=== PATIENT | female | born 1990 | race Caucasian/White ===

== ENCOUNTER 2016-08-06 01:54 | Emergency (ER) | payer BC, OTHER ==
[~2016-08-06] VITALS: Ht 162.6 cm; Wt 64.5 kg
[2016-08-06 01:55] VITALS: TEMP 36.3; O2SAT 100; Ht 162.6 cm; Wt 64.5 kg
--- NOTE | 2016-08-06 02:11 | EMERGENCY ROOM VISIT NOTE ---
History Report prepared by Kin: Nieves Morrell Under the Supervision of: Dr. Rosa Isela Rodriguez D.O. First contact with patient: 01:56 Chief Complaint: ALCOHOL OVERDOSE Stated Complaint: ALCOHOL OVERDOSE History of Present Illness The patient is a 25 year old female who presents to the Emergency Room with complaints of alcohol overdose occurring [employer]. According to nursing staff the patient was drinking at a friends house and after returning home was found by fiance in the shower with all her clothes on and vomit all over herself. The patient states that she did not injury herself tonight. She denies the possibility of currency being and states her last menstrual period was 2 weeks ago. Source of History: patient, nursing staff History Limited By: intoxication Onset: [employer] Position: other (global) Note: Patient denies any injury. Review of Systems See HPI for pertinent positives & negatives. A total of 10 systems reviewed and were otherwise negative. Past Medical & Surgical Medical Problems: (1) No significant medical problems Family History No pertinent family history stated. Social History Alcohol Use: occasionally Marital Status: in relationship Housing Status: lives with significant other Occupation Status: employed Current/Historical Medications No Active Prescriptions or Reported Meds Allergies Coded Allergies: No Known Allergies (Unverified , 08/06/16) Physical Exam Vital Signs Date Time Temp Pulse Resp B/P Pulse Ox O2 Delivery O2 Flow Rate FiO2 08/06/16 04:36 77 20 111/81 99 Room Air 08/06/16 02:02 73 08/06/16 01:55 100 Room Air 08/06/16 01:55 36.3 70 20 127/66 100 Room Air Physical Exam General: Smells of alcohol, has vomit in hair and is angry. HEENT: Head - normocephalic and atraumatic Pupils are 4 mm and reactive to light. Extraocular eye muscles are intact, and sclera are anicteric. Nose - moist nasal mucosa without discharge. Mouth - moist buccal mucosa. Oropharynx is nonerythematous and there is no tonsillar exudate or edema noted. Neck: Supple; no JVD, nuchal rigidity, cervical lymphadenopathy. Heart: Regular rate and rhythm. There is a normal S1 and S2 with no murmurs, clicks, or gallops appreciated. Lungs: Clear to auscultation bilaterally with no wheezes, rales, or rhonchi. Abdomen: Soft, completely nontender, nondistended, with good bowel sounds. There are no palpable pulsatile masses or hepatosplenomegaly. There is no guarding, rigidity, or rebound noted. Extremities: No evidence of cyanosis, clubbing, or edema. There are easily palpable peripheral pulses. Skin: warm and dry with good turgor and no rashes. Medical Decision & Procedures Laboratory Results 08/06/16 02:20 Test 08/06/16 02:20 Anion Gap 8.0 mmol/L (3-11) Est Creatinine Clear Calc Drug Dose 85.9 ml/min Estimated GFR () 108.8 Estimated GFR (Non- 93.9 BUN/Creatinine Ratio 14.4 (10-20) Calcium Level 8.3 mg/dl (8.5-10.1) Ethyl Alcohol mg/dL 307.0 mg/dl (0-3) Laboratory results per my review. ED Course 0203: Past medical records reviewed. The patient was evaluated in room B4. A complete history and physical exam was performed. The patient was placed in the prone position to avoid aspiration. She was observed on the cardiac rehabilitation program director and pulse oximeter. Labs were drawn as above. 0350: I reevaluated the patient and she was hemodynamically stable and discussed her lab results with her. 0450: I reevaluated the patient and he was hemodynamically stable and sleeping 0542: I reevaluated the patient and she was asleep and unable to be aroused and hemodynamically stable. 0630: The patient is signed out to Dr. Santo at change of shift. Medical Decision The patient is a 25 year old female who presents to the ED with alcohol overdose. Differential diagnosis includes alcohol overdose, drug intoxication, head injury, hypothermia, and hyperglycemia. Labs: EtOH 307 Normal renal function Glucose 93 This is a 25-year-old female patient who was drinking with friends this evening for [employer]. The patient began to vomit and was brought to the emergency department. She denies any trauma. Her blood alcohol level significantly elevated. I've encouraged her to avoid such excessive alcohol use in the future. She will be signed out to Dr. Santo at shift change. Impression Primary Impression: Alcohol overdose Scribe Attestation The scribe's documentation has been prepared under my direction and personally reviewed by me in its entirety. I confirm that the note above accurately reflects all work, treatment, procedures, and medical decision making performed by me. Departure Information Dispostion Home / Self-Care Prescriptions No Active Prescriptions or Reported Meds Referrals Tania Chavira DO (PCP) Forms HOME CARE DOCUMENTATION FORM, IMPORTANT VISIT INFORMATION Patient Instructions A Signature Page, [facility] Additional Instructions Rest. Take plenty of clear liquids. Take tylenol for headache. Avoid such excessive alcohol use in the future
[2016-08-06 02:51] LABS: BUN/CREATININE RATIO 14.4 (10-20); CALCIUM 8.3 mg/dl (8.5-10.1); CREATININE 0.85 mg/dl (0.60-1.20); POTASSIUM 3.4 mmol/L (3.5-5.1)
[2016-08-06 08:29] VITALS: BP 87/50
[2016-08-06 08:44] VITALS: PULSE 98; O2SAT 98
--- NOTE | 2016-08-06 13:50 | EMERGENCY ROOM VISIT NOTE ---
ED Visit Note Patient signed out to me by Dr. Rodriguez. Awaiting sobriety. Was discharged when sober.
== END 2016-08-06 09:02 | disposition home or self-care (01) ==
LOC: EDBD 01:54 → C.EDB 01:55
DX: F10.129 Alcohol abuse with intoxication, unspecified (principal)

== ENCOUNTER → 2017-02-22 | Outpatient (CLI) | payer BC ==
--- NOTE | 2017-02-22 12:16 | DIAGNOSTIC IMAGING REPORT ---
SOFT TISS HEAD/NECK-THYROID HISTORY: 18-year-old female presents with thyroiditis COMPARISON: None available TECHNIQUE: Multiple real time sonographic images of the thyroid were obtained accessing scale appearance and color doppler flow. FINDINGS: MEASUREMENTS: Right lobe: 5.6 x 1.6 x 1.7 cm Left lobe: 5.0 x 1.9 x 2.3 cm Isthmus: 0.3 cm PARENCHYMA: The thyroid parenchymal echotexture is heterogeneous, notably within the inferior poles bilaterally. NODULES: In the lower pole right thyroid there is an ill-defined area of decreased echogenicity suggesting a nodule or focally heterogeneous thyroid tissue with scattered areas of internal flow measuring 1.2 x 2.3 x 1.2 cm. IMPRESSION: 1. Heterogeneous thyroid parenchyma is compatible with patient's stated history of thyroiditis. 2. Focally heterogeneous thyroid tissue or ill-defined nodule within the lower pole right thyroid is seen measuring up to 2.3 cm. Attention on follow-up recommended. The above report was generated using voice recognition software. It may contain grammatical, syntax or spelling errors. Electronically signed by: Frank Avina M.D. 02/22/2017 12:15 PM Dictated Date/Time: 02/22/2017 12:10 PM
== END | disposition home or self-care (01) ==
LOC: C.ULTRBC 10:55
PROVIDERS: ATTEND Family Medicine
DX: E06.0 Acute thyroiditis (principal)

== ENCOUNTER → 2017-03-30 | Outpatient (CLI) | payer BC ==
--- NOTE | 2017-03-30 10:22 | DIAGNOSTIC IMAGING REPORT ---
THYROID ULTRASOUND CLINICAL HISTORY: Follow up possible thyroid nodule. COMPARISON STUDY: Thyroid ultrasound February 22, 2017. TECHNIQUE: Sonography of the thyroid gland was performed. FINDINGS: The right thyroid lobe measures 4.9 x 1.5 x 1.6 cm and the left thyroid lobe measures 4.1 x 1.4 x 1.3 cm. The size of the gland and heterogeneity of the thyroid gland has diminished since exam of February 22, 2017. In addition, the possible ill-defined nodule within the lower pole of the right thyroid lobe has significantly decreased in size since prior exam. This could reflect a portion of the thyroid gland or an adjacent lymph node. Regardless, this finding has significantly decreased in size. It now measures 1.1 x 0.7 x 0.6 cm. It measured 2.3 x 1.2 x 1.2 cm on ultrasound of February 22, 2017. Therefore, this finding is benign. IMPRESSION: 1. Interval decrease in size and heterogeneity of the thyroid gland since ultrasound of February 22, 2017 consistent with interval improvement in thyroiditis. 2. Significant decrease in size of the possible right lobe thyroid nodule since exam of February 22, 2017. This could reflect heterogeneous thyroid parenchyma, a benign nodule or adjacent lymph node. Regardless, this finding is benign given interval decrease in size. Electronically signed by: Nir Hernandez M.D. 03/30/2017 10:20 AM Dictated Date/Time: 03/30/2017 10:13 AM
== END | disposition home or self-care (01) ==
LOC: C.ULTRBC 09:27
PROVIDERS: ATTEND Family Medicine
DX: E04.1 Nontoxic single thyroid nodule (principal)